=== PATIENT | female | born 1995 | race Caucasian/White ===

== ENCOUNTER 2017-02-13 08:28 | Emergency (ER) | payer OTHER ==
[~2017-02-13] VITALS: Ht 154.9 cm; Wt 97.7 kg
[~2017-02-13 08:28] MED LIST: AUD NEB; BECL8.7A7 IH
[2017-02-13] MEDS ORDERED: HYDROCODONE/ACETAMINOPHEN 5-325 MG TABLET PO ONE (09:30)
[2017-02-13] MEDS ORDERED: METHOCARBAMOL 500 MG TABLET PO ONE (09:30)
[2017-02-13 10:05] VITALS: BP 110/67
== END 2017-02-13 11:04 | disposition home or self-care (01) ==
LOC: EMS 08:31
DX: S13.4XXA Sprain of ligaments of cervical spine, initial encounter (principal); J45.909 Unspecified asthma, uncomplicated; V43.62XA Car passenger injured in collision with other type car in traffic accident, initial encounter; Y93.89 Activity, other specified; Y92.488 Other paved roadways as the place of occurrence of the external cause; Y99.8 Other external cause status
CPT/HCPCS: 72100; 81025; 99284

== ENCOUNTER 2017-06-30 13:09 | Emergency (ER) | payer OTHER ==
[~2017-06-30] VITALS: Ht 154.9 cm; Wt 100.0 kg
[2017-06-30] MEDS ORDERED: LIDOCAINE HCL 2%/EPI 1:200,000/PF 20 ML VIAL INJ ONE (16:30)
[2017-06-30 17:53] VITALS: BP 140/81
[2017-06-30] MEDS ORDERED: CEPHALEXIN MONOHYDRATE 500 MG CAPSULE PO ONE (18:15)
== END 2017-06-30 18:37 | disposition home or self-care (01) ==
LOC: EMS 13:11
DX: L02.221 Furuncle of abdominal wall (principal); L03.311 Cellulitis of abdominal wall; L53.9 Erythematous condition, unspecified; J45.909 Unspecified asthma, uncomplicated
CPT/HCPCS: 10060; 99283; X6474; 56405; 99284

== ENCOUNTER 2017-07-02 06:56 | Emergency (ER) | payer OTHER ==
[~2017-07-02] VITALS: Ht 154.9 cm; Wt 100.0 kg
[~2017-07-02 06:56] MED LIST changes: -AUD NEB
[2017-07-02 09:35] VITALS: BP 114/62
== END 2017-07-02 09:46 | disposition home or self-care (01) ==
LOC: EMS 06:58
DX: Z48.00 Encounter for change or removal of nonsurgical wound dressing (principal); J45.909 Unspecified asthma, uncomplicated
CPT/HCPCS: 99281

== ENCOUNTER 2018-08-28 00:12 | Emergency (ER) | payer OTHER ==
[~2018-08-28] VITALS: Ht 154.9 cm; Wt 97.7 kg
[2018-08-28] MEDS ORDERED: ALBU8HFA IH (00:33)
[2018-08-28 02:12] VITALS: BP 109/54
== END 2018-08-28 03:00 | disposition left against medical advice (07) ==
LOC: EMS 00:14
DX: J45.909 Unspecified asthma, uncomplicated (principal); J02.9 Acute pharyngitis, unspecified; Z76.0 Encounter for issue of repeat prescription; Z53.21 Procedure and treatment not carried out due to patient leaving prior to being seen by health care provider

== ENCOUNTER 2020-04-29 16:17 | Emergency (ER) | payer MEDICAID, OTHER ==
[~2020-04-29] VITALS: Ht 160 cm; Wt 100.0 kg
[~2020-04-29 16:17] MED LIST changes: +ALBU8HFA IH
[2020-04-29 18:20] VITALS: BP 128/69
== END 2020-04-29 18:21 | disposition home or self-care (01) ==
LOC: EMS 16:17
DX: N76.4 Abscess of vulva (principal); J45.909 Unspecified asthma, uncomplicated
CPT/HCPCS: 99283; Z7502